=== PATIENT | male | born 1965 | race Caucasian/White ===

== ENCOUNTER 2021-07-28 10:50 | Outpatient (REF) | payer OTHER, SELFPAY ==
--- NOTE | ~2021-07-28 | MM_ITS ---
EXAMINATION: BONE DENSITOMETRY CLINICAL INDICATION: Encounter for screening for osteoporosis. COMPARISON: None (current study represents initial baseline exam). TECHNIQUE: Using a LiveRamp DXA System (software version: 13.1) manufactured by [employer], dual-energy x-ray absorptiometry was performed of the lumbar spine and left hip. The images are of good technical quality. Summary results are attached. FINDINGS: AP SPINE L1-L2 (excluding L3 and L4): The data of L1-L4 has been changed to exclude the L3 and L4 vertebral bodies, because mild degenerative changes at these levels may cause overestimation of lumbar spine density. BMD 1.114 g/cm2, Z-score -0.9, T-score -0.7, normal. LEFT FEMUR, NECK: BMD 1.021 g/cm2, Z-score 0.1, T-score -0.4, normal. LEFT FEMUR, TOTAL: BMD 0.976 g/cm2, Z-score -0.8, T-score -0.9, normal. IDENTIFIED RISK FACTORS: Secondary osteoporosis, (hypogonadism). HISTORY OF FRACTURE: None listed. MEDICATIONS: Vitamin D. ERT/SERMS. MM/XR DEXA axial skeleton IMPRESSION: 1. DIAGNOSIS: Normal bone density based on the lowest T-score value of -0.9 in the total femur applying World Health Organization criteria. 2. 10-YEAR FRACTURE RISK PREDICTION, FRAX: According to the guidelines, FRAX calculation should only be performed on patients in the osteopenia bone density category. Therefore, FRAX was not performed on this patient. 3. Treatment Recommendations: NOF guidelines recommend consideration for treatment in postmenopausal women and men age 50 and older presenting with the following: -A hip or vertebral (clinical or morphometric) fracture. -T-score less than or equal to -2.5 at the femoral neck or spine after appropriate evaluation to exclude secondary causes. -Low bone mass at the hip or spine and a 10-year fracture probability by FRAX of greater than or equal to 3% for hip fracture or greater than or equal to 20% for major osteoporotic fracture based on the [place] adapted WHO algorithm. 4. Other Recommendations: All treatment decisions require clinical judgment and consideration of individual patient factors, including patient preferences, comorbidities, previous drug use, risk factors not captured in the FRAX model (e.g. frailty, falls, vitamin D deficiency, increased bone turnover, interval significant decline in bone density) and possible under or overestimation of fracture risk by FRAX. FUTURE SCAN RECOMMENDATION: People with diagnosed cases of osteoporosis or at high risk for fracture should have regular bone mineral density tests. For patients eligible for Medicare, routine testing is allowed once every 2 years. The testing frequency can be increased to one year for patients who have rapidly progressing disease, those who are receiving or discontinuing medical therapy to restore bone mass, or have additional risk factors.
== END 2021-07-28 10:51 | disposition home or self-care (01) ==
LOC: HO.MAMMO 10:50
PROVIDERS: PCP Nurse Practitioner Primary Care; Visit Provider Nurse Practitioner Primary Care
DX: Z13.820 Encounter for screening for osteoporosis (principal); B20 Human immunodeficiency virus [HIV] disease; E29.1 Testicular hypofunction; Q98.4 Klinefelter syndrome, unspecified; Z79.899 Other long term (current) drug therapy
CPT/HCPCS: 77080

== ENCOUNTER 2023-03-20 11:51 | Outpatient (REF) | payer OTHER, SELFPAY ==
[2023-03-20 13:15] LABS: MANUAL DIFF FLAG NO
[2023-03-20 13:29] LABS: Basophils Percent Auto 0.3 % (0-2); Eosinophils Absolute Auto 0.1 X10*3/uL (0.0-0.4); Eosinophils Percent Auto 0.8 % (0-4); Hematocrit 41.6 % (42.0-52.0); Hemoglobin 13.8 g/dl (14.0-18.0); Imm Gran Abs Auto 0.02 X10*3/uL (0.00-0.03); Imm Gran Pct Auto 0.3 % (0.0-0.4); Lymphocytes Absolute Auto 2.1 X10*3/uL (1.2-4.9); Lymphocytes Percent Auto 27.4 % (20-40); Mean Corpuscular HGB Conc 33.2 g/dl (31.0-36.0); Mean Corpuscular Hemoglobin 30.3 pg (27.0-33.0); Mean Corpuscular Volume 91.4 fL (80.0-98.0); Mean Platelet Volume 9.5 fL (9.4-12.4); Monocytes Absolute Auto 0.4 X10*3/uL (0.1-1.2); Monocytes Percent Auto 5.2 % (2-11); Neutrophils Absolute Auto 5.1 x10*3/uL (2.0-8.3); Platelet Count 130 X10*3/uL (160-400); Red Blood Count 4.55 X10*6/uL (4.60-5.80); Red Cell Distribution Width 12.4 % (11.0-16.0); White Blood Count 7.7 X10*3/uL (4.8-10.8)
[2023-03-20 13:40] LABS: Alanine Aminotransferase 12 U/L (0-40); Albumin Level 4.1 g/dL (3.5-5.0); Alkaline Phosphatase 59 U/L (39-117); Anion Gap 8 (12-20); Aspartate Amino Transferase 13 U/L (5-37); Bilirubin Total 0.6 mg/dL (0.0-1.0); Blood Urea Nitrogen 9 mg/dL (9-16); Calcium 9.1 mg/dL (8.4-10.2); Carbon Dioxide 30 mmol/L (22-29); Chloride 107 mmol/L (96-108); Estimated Glomerular Filt Rate > 60; Glucose Random 89 mg/dL (60-115); Potassium 4.1 mmol/L (3.3-5.1); Sodium 141 mmol/L (135-145); Total Protein 7.5 g/dL (6.5-8.0)
[2023-03-22 11:59] LABS: Absolute CD3 Count 1699 cells/uL (840-3060); Absolute CD4 Count 679 cells/uL (490-1740); Absolute CD8 Count 1024 cells/uL (180-1170); Absolute Lymphocytes 2176 cells/uL (850-3900); CD4 CD8 Ratio 0.66 (0.86-5.00); Percent CD3 Cells 78 % (57-85); Percent CD4 Cells 31 % (30-61); Percent CD8 Cells 47 % (12-42)
[2023-03-22 12:49] LABS: RPR Rapid Plasma Reagin NON-REACTIVE (NON-REACTIVE)
[2023-03-23 16:38] LABS: HIV RNA PCR Qn Copies 331 copies/mL (NOT DETECTED); HIV RNA PCR Qn Log Copies 2.52 (NOT DETECTED)
== END 2023-03-20 11:52 | disposition home or self-care (01) ==
LOC: HO.HHCL 11:51
PROVIDERS: Visit Provider Internal Medicine
DX: B20 Human immunodeficiency virus [HIV] disease (principal)
CPT/HCPCS: 36415; 80053; 82550; 85025; 86359; 86360; 86592; 87536

== ENCOUNTER 2023-07-04 09:34 | Outpatient (REF) | payer OTHER, SELFPAY ==
[2023-07-04 12:15] LABS: Hepatitis B Surface Antigen Negative (Negative); ~Hepatitis B Surface Antibody REACTIVE (Nonreactive)
[2023-07-04 12:32] LABS: Cholesterol 177 mg/dL (<200); Cholesterol 178 mg/dL (<200); HDL Cholesterol 57 mg/dL (>40); HDL Cholesterol 59 mg/dL (>40); LDL Cholesterol Calculated 92 mg/dL (<100); LDL Cholesterol Calculated 95 mg/dL (<100); Triglycerides 131 mg/dL (<150); Triglycerides 134 mg/dL (<150)
[2023-07-04 13:35] LABS: Reflex LDLD? No
[2023-07-04 14:34] LABS: HBc Num2 0.92 S/CO; HBc Num3 0.93 S/CO; Hepatitis B Core Antibody Nonreactive (Nonreactive)
[2023-07-07 07:43] LABS: TS Negative Control Passed; TS Panel A 0; TS Panel B 1; TS Positive Control Passed; TSpotTB Negative (Negative)
== END 2023-07-04 09:35 | disposition home or self-care (01) ==
LOC: HO.HHCL 09:34
PROVIDERS: Nurse Practitioner Primary Care; Visit Provider Internal Medicine
DX: Z11.1 Encounter for screening for respiratory tuberculosis (principal); E78.5 Hyperlipidemia, unspecified; B20 Human immunodeficiency virus [HIV] disease
CPT/HCPCS: 36415; 80061; 86481; 86704; 86706; 87340

== ENCOUNTER 2023-09-12 12:21 | Outpatient (REF) | payer OTHER, SELFPAY ==
[2023-09-12 13:02] LABS: MANUAL DIFF FLAG NO
[2023-09-12 13:21] LABS: Basophils Percent Auto 0.3 % (0-2); Eosinophils Percent Auto 0.7 % (0-4); Hematocrit 40.2 % (42.0-52.0); Imm Gran Abs Auto 0.02 X10*3/uL (0.00-0.03); Imm Gran Pct Auto 0.3 % (0.0-0.4); Lymphocytes Absolute Auto 1.4 X10*3/uL (1.2-4.9); Mean Corpuscular HGB Conc 34.8 g/dl (31.0-36.0); Mean Corpuscular Hemoglobin 30.5 pg (27.0-33.0); Mean Corpuscular Volume 87.6 fL (80.0-98.0); Mean Platelet Volume 9.4 fL (9.4-12.4); Monocytes Absolute Auto 0.3 X10*3/uL (0.1-1.2); Monocytes Percent Auto 5.8 % (2-11); Neutrophils Absolute Auto 4.1 x10*3/uL (2.0-8.3); Neutrophils Percent Auto 69.9 % (45-73); Platelet Count 135 X10*3/uL (160-400); Red Blood Count 4.59 X10*6/uL (4.60-5.80); Red Cell Distribution Width 13.3 % (11.0-16.0); White Blood Count 5.9 X10*3/uL (4.8-10.8)
[2023-09-12 13:42] LABS: Alanine Aminotransferase 14 U/L (0-40); Albumin Level 4.1 g/dL (3.5-5.0); Alkaline Phosphatase 57 U/L (39-117); Anion Gap 13 (12-20); Aspartate Amino Transferase 14 U/L (5-37); Bilirubin Total 0.6 mg/dL (0.0-1.0); Blood Urea Nitrogen 8 mg/dL (9-16); Calcium 8.7 mg/dL (8.4-10.2); Carbon Dioxide 27 mmol/L (22-29); Chloride 104 mmol/L (96-108); Estimated Glomerular Filt Rate > 60; Glucose Random 100 mg/dL (60-115); Potassium 3.6 mmol/L (3.3-5.1); Sodium 140 mmol/L (135-145); Total Protein 7.2 g/dL (6.5-8.0)
[2023-09-13 10:14] LABS: RPR Rapid Plasma Reagin NON-REACTIVE (NON-REACTIVE)
[2023-09-13 11:14] LABS: Absolute CD3 Count 1028 cells/uL (840-3060); Absolute CD4 Count 497 cells/uL (490-1740); Absolute CD8 Count 539 cells/uL (180-1170); Absolute Lymphocytes 1264 cells/uL (850-3900); CD4 CD8 Ratio 0.92 (0.86-5.00); Percent CD3 Cells 81 % (57-85); Percent CD4 Cells 39 % (30-61); Percent CD8 Cells 43 % (12-42)
[2023-09-14 14:44] LABS: HIV RNA PCR Qn Copies 154 copies/mL (NOT DETECTED); HIV RNA PCR Qn Log Copies 2.19 (NOT DETECTED)
== END 2023-09-12 12:22 | disposition home or self-care (01) ==
LOC: HO.HHCL 12:21
PROVIDERS: Visit Provider Internal Medicine
DX: B20 Human immunodeficiency virus [HIV] disease (principal)
CPT/HCPCS: 36415; 80053; 82550; 85025; 86359; 86360; 86592; 87536

== ENCOUNTER 2023-12-04 13:17 | Outpatient (AMB) | payer MEDICAID, SELFPAY ==
--- NOTE | 2023-12-04 13:26 | MHC.OFFVIS ---
Vital Signs 12/04/23 13:27 Height 5 ft 11 in Weight 200 lb 9.93 oz BMI 28.0 BP 118/60 Blood Pressure Location Lt brachial Position Sitting Pulse 45 L Pulse Source Monitor Intake Visit Reasons: [employer]/ Dorene Hyatt/ syncope (rs) Allergies codeine Allergy (Mild, Verified 12/04/23 13:36) Hives abacavir [From Ziagen] Adverse Reaction (Severe, Verified 12/04/23 13:36) loss of hearing Medication List - Last Reconciled 12/04/23 by Fahad Terrell MD iodine (kelp) 250 mcg PO medroxyprogesterone 2.5 mg PO BEDTIME rosuvastatin 10 mg PO DAILY syringe (disposable) (BD Luer-Pal Syringe) As directed HPI Comments Details: Stefanie is here for consultation regarding presyncope. Recently, patient was trying to get up from a seated position and and it seems that there was dizziness and presyncopal event. Denies any loss of consciousness. No other known cardiac issues like coronary disease or myocardial infarction or cardiomyopathy or anything else. Per patient, known to have low heart rates for a long time. Also known to have lowish blood pressures. [facility] Medical History (Updated 12/04/23 @ 13:48 by Fahad Terrell MD) Klinefelter syndrome HIV (human immunodeficiency virus infection) Family History (Updated 12/04/23 @ 13:47 by Fahad Terrell MD) Mother Lung cancer Social History (Updated 12/04/23 @ 13:39 by Claudette Mercado) Alcohol intake: current Alcohol intake frequency: holidays/special occasions only Patient Tobacco Use Status: Never used Tobacco Review of Systems Const Denies weakness ENT Denies dizziness Card Denies chest pain, Denies chest pain with activity, Denies syncope, Denies rapid heart rate, Denies pedal edema, Denies edema, Denies leg edema, Denies lightheadedness, Reports palpitations, Reports dyspnea and Reports dyspnea on exertion Resp Denies cough, Reports dyspnea and Reports dyspnea on exertion GI Denies hematochezia and Denies change in stool character Musc Denies abnormal gait, Denies muscle cramps, Denies muscle weakness, Denies numbness, Denies radiating pain into limb and Denies tingling Neuro Denies abnormal gait, Denies dizziness, Denies syncope, Denies numbness, Denies tingling and Denies weakness Endo Reports palpitations Physical Exam Vital Signs: Last Vital Signs Pulse 45 L 12/04/23 13:27 BP 118/60 12/04/23 13:27 BMI result Body Mass Index 28.0 Const General: comfortable and no acute distress Orientation/consciousness: patient oriented x3 HEENT Other: Unremarkable Head: Yes normal to inspection Neck Neck: Yes normal visual inspection Chest Chest palpation & inspection: normal inspection of the chest Resp Auscultation: clear to auscultation bilaterally Cardio Palpation: normal PMI Heart sounds: S1 normal heart sound present, S2 normal heart sound present, no gallops, no murmurs and no rubs GI Palpation (GI): Soft to palpation Back/Spine/Pelvis Other: unremarkable Skin General skin exam: no rashes or lesions noted Neuro General: patient oriented x3 Extrem General: Yes normal to inspection Psych Mental Status: mental status grossly normal Office Procedures EKG Details: EKG with probably underlying ectopic atrial rhythm with rate of 45/Min. Last 2 beats could be sinus beats. [id number], Complete Assessment & Plan Assessment & Plan (1) Bradycardia: Code(s): R00.1 - Bradycardia, unspecified Category: Medical (2) Pre-syncope: Code(s): R55 - Syncope and collapse Category: Medical Plan Presyncopal episode possibly related to low blood pressure. Unclear if the bradycardia itself is causing any symptoms as according to patient it is a long-term issue. We will perform a comprehensive workup. Echocardiogram for cardiac function. We will do an exercise stress test look for chronotropic competence. Holter monitor for any clinically significant pauses or heart blocks. Follow-up after the above. Orders: Orders ECG 3 day holter monitor Today R00.1 - Bradycardia, unspecified CA echo transthoracic complete Today R00.1 - Bradycardia, unspecified, R55 - Syncope and collapse CA stress test Today R00.1 - Bradycardia, unspecified Coding Level of Care Code New Pt Level 4 (17768) Diagnoses Bradycardia R00.1 Pre-syncope R55 CPT Codes EKG - CPT: 98730-[id number], Complete ([id number])
[2023-12-04 13:27] VITALS: BP 118/60; PULSE 45; BMI 28.0
== END 2023-12-04 13:53 | disposition home or self-care (01) ==
PROVIDERS: PCP Nurse Practitioner Primary Care; Visit Provider Internal Medicine
DX: R00.1 Bradycardia, unspecified (principal); R55 Syncope and collapse
CPT/HCPCS: 93010; 99204

== ENCOUNTER → 2023-12-04 13:17 | Outpatient (BNVA) | payer MEDICAID, SELFPAY | PROVIDERS: PCP Nurse Practitioner Primary Care; Visit Provider Internal Medicine | DX: R55 Syncope and collapse (principal); R00.1 Bradycardia, unspecified | CPT/HCPCS: 93005; 99202 ==

== ENCOUNTER → 2024-01-13 07:46 | Outpatient (REF) | payer MEDICAID, SELFPAY ==
--- NOTE | 2024-01-13 07:48 | CA_ITS ---
Acquisition Time: 2024-01-13 08:49:11 Total Exercise Time: 00:10:33 Test Indications: BRADYCARDIA Medications: SEE H Protocol: ALYSHA Max HR: 148 BPM 90% of Pred: 164 BPM Max BP: 182/068 mmHG Max Work Load: 12.6 METS Exercise stress test exercise 10 min 33 sec of Alysha protocol achieving 90% MPHR, with mild SOB, no chest discomfort, isolated PVCs and cuplet and isolated PACs (asymptomatic), with normotensive response to exercise, with adequate heart rate response, without EKG changes. Test reviewed with Dr. Kaiser Referred By: Fahad Terrell Overread By: Pavithra Sandoval
--- NOTE | 2024-01-13 07:48 | CA_ITS ---
Transthoracic Echocardiogram Patient (Last, First, Middle): Stefanie Pelaez D Gender: Male Date of : 1965 Age: 58 Procedure Date: 01/13/2024 Procedure Type: Transthoracic Echocardiogram Location: OP Height: 180. cm Weight: 86.18 kg BSA: 2.06 m2 Heart Rate: bpm BP: 120 / 65 mmHg Product Engineering Manager: LISA Alatorre MD: Fahad Terrell MD Psychologist Clinical: Tony Kaiser MD Symptoms: R00.1 - Bradycardia, unspecified Study Quality: Good ECG Rhythm: Sinus Conclusions: - Essentially normal study Findings Left Ventricle Normal left ventricular cavity size. There is normal left ventricular wall thickness. The left ventricular systolic function is hyperdynamic. The visually estimated ejection fraction is >70%. Spectral Doppler is indicative of a normal filling pattern. Peak GLS is -22.1%, withn normal limits Right Ventricle Normal right ventricular cavity size and systolic function. Atria Both atria are normal in size. There is no evidence of interatrial shunt. Aortic Valve Normal aortic valve structure and function. There is no aortic valve stenosis. There is no aortic valve regurgitation. Mitral Valve Normal mitral valve structure and function. There is trace mitral valve regurgitation. There is no mitral valve stenosis. Pulmonic Valve The pulmonic valve is likely normal. There is trace pulmonic valve regurgitation. Tricuspid Valve Normal tricuspid valve structure. There is trace tricuspid valve regurgitation. The right ventricular systolic pressure is normal. The right ventricular systolic pressure is 16 mmHg. Normal right atrial pressure. There is no evidence of pulmonary hypertension. Great Vessels All visible segments of the aorta are normal in size. There is no dilatation of the ascending aorta measuring 3.00 cm. The visualized portions of the pulmonary artery and branches are normal. Venous The inferior vena cava is normal in size and collapses greater than 50% with inspiration. Pericardium/Pleural There is no evidence of pericardial effusion. Prior Study Comparison No prior study available for comparison. Measurements 2D Linear Measurements IVSd: 0.92 0.6-0.9/0.6-1.0 cm LVIDd: 5.72 3.9-5.3/4.2-5.9 cm LVIDd Index: 2.78 2.4-3.2/2.2-3.1 cm/m2 LVIDs: 3.00 2.0-3.6 cm LVPWd: 0.86 0.7-1.1 cm LA Diam: 4.60 2.7-3.8/3.0-4.0 cm LAIDs Index: 2.23 1.5-2.3 cm/m2 LV Mass: 243.94 67-162/88-224 g LV Mass Index: 118.42 43-95/49-115 g/m2 LVOT Diam: 1.90 3.0+(-)1.3 cm 2D Systolic Function EF 4C: 71.70 >55% EF 2C: 79.60 >55% EF BiP: 75.60 >55% Mitral Valve MV Pk E: 0.84 MV PK A: 0.68 MV Decel Time: 273.00 E/A: 1.20 E'Lateral: 12.40 E'Medial: 9.36 E/E' Med: 9.00 E/E' Lat: 6.80 PHT: 80.00 MVA PHT: 2.75 Decel Gaines: 3.09 Aortic Valve AoV Pk Luis: 1.43 AoV Mn Luis: 1.04 AoV VTI: 0.40 AoV Pk Grad: 8.00 Aov Mn Grad: 5.00 GIOVANA Cont.VTI: 1.97 LVOT LVOT Pk Luis: 1.10 LVOT Mn Luis: 0.72 LVOT VTI: 0.28 LVOT Pk Grad: 5.00 LVOT Mn Grad: 3.00 LVOT Diam: 1.90 LVOT Area: 2.84 Diastolic Function MV Pk E: 0.84 MV Pk A: 0.68 E/A: 1.20 E'Medial: 9.36 E/E' Med: 9.00 E' Laterial: 12.40 E/E' Lat: 6.80 Right Ventricle TAPSE (mm): 21.80 TVS' Luis: 12.50 Tricuspid Valve TR Pk Luis: 1.82 TR Pk Grad: 13.00 RA Press: 3.00 RVSP: 16.00 Great Vessels Aorta Sinus of Valsalva: 3.10 2.0-3.5 cm Ao Asc: 3.00 2.1-3.4 cm Pulmonary Valve PV Pk Luis: 1.03 Peak PV Grad: 4.00 Updated in Other Vendor System with Status of Final Tony Kaiser MD electronically signed on 01/14/2024 12:17:29 PM with status of Final
--- NOTE | 2024-01-13 07:48 | HM_ITS ---
Conclusion: 1. Patient was monitored for total period of 3 days 2. Baseline was normal sinus rhythm with average heart rate of 51 beats per minute 3. No significant pauses noted but frequent sinus bradycardia noted with 82% of time heart rate below 60 beats per minute 4. Occasional PACs and PVCs noted 5. Patient mentioned 5 symptoms with fast heart rate and/or atrial fibrillation, correlating with mostly sinus rhythm and 1 time with isolated PACs MTDD
== END ==
LOC: HO.CARD 07:46
PROVIDERS: PCP Nurse Practitioner Family; Visit Provider Internal Medicine
DX: R00.1 Bradycardia, unspecified (principal); R55 Syncope and collapse
CPT/HCPCS: 93017; 93242; 93306; 93356

== ENCOUNTER → 2024-01-13 07:48 | Outpatient (BNV) | payer MEDICAID, SELFPAY | PROVIDERS: PCP Nurse Practitioner Family; Visit Provider Nurse Practitioner | DX: I48.91 Unspecified atrial fibrillation (principal) | CPT/HCPCS: 93016; 93018; 93244; 93320; 93325; 93350; 93356 ==